=== PATIENT | female | born 1990 | race Caucasian/White ===

== ENCOUNTER → 2024-06-23 | Day surgery (SDC) | payer MEDICAID, SELFPAY ==
[2024-06-22 10:24] VITALS: BMI 37.9
[2024-06-22 12:07] LABS: Basophils % (Auto) 1 % (0-2.5); Eosinophils # (Auto) 0.1 Thou/mm3 (0.0-0.5); Eosinophils % (Auto) 1 % (0-10); Hematocrit 41.2 % (36.0-46.0); Hemoglobin 13.9 g/dL (12.0-16.0); Immature Granulocytes % (Auto) 0 % (0-0); Immature Granulocytes Auto 0.02 Thou/mm3 (0.00-0.00); Lymphocytes # (Auto) 1.8 Thou/mm3 (1.0-4.8); Lymphocytes % (Auto) 28 % (10-50); Mean Corpuscular HGB Conc 33.7 g/dl (31.0-37.0); Mean Corpuscular Hemoglobin 28.5 pg (25.0-35.0); Mean Corpuscular Volume 85 fL (80-100); Monocytes # (Auto) 0.5 Thou/mm3 (0.0-0.8); Monocytes % (Auto) 8 % (0-12); Neutrophils # (Auto) 4.2 Thou/mm3 (1.8-7.7); Neutrophils % (Auto) 63 % (37-80); Nucleated Red Blood Cell % 0 /100 WBC (0); Platelet Count 267 Thou/mm3 (140-440); RDW Standard Deviation 41.5 fL (36.4-46.3); Red Blood Count 4.87 Miln/mm3 (4.00-5.20); White Blood Count 6.6 Thou/mm3 (3.6-11.0)
[2024-06-22 12:08] LABS: HCG Qualitative,Urine Negative
[2024-06-22 12:14] LABS: Partial Thromboplastin Time 29.3 Seconds (22.0-36.0); Prothrombin Time 10.5 Seconds (9.0-12.2)
[2024-06-22 12:18] LABS: Alanine Aminotransferase 24 U/L (10-49); Albumin/Globulin Ratio 2.2 (1.2-2.2); Alkaline Phosphatase 91 U/L (46-116); Anion Gap 7 (7-16); Aspartate Amino Transferase 13 U/L (0-34); BUN/Creatinine Ratio 15 Ratio (12-20); Bilirubin,Total 0.2 mg/dL (0.3-1.2); Blood Urea Nitrogen 12 mg/dL (9-23); Calcium 9.3 mg/dL (8.3-10.6); Calcium (Corrected) 9.3 mg/dL (8.5-10.1); Carbon Dioxide 24.7 mMol/L (20.0-31.0); Chloride 105 mMol/L (98-107); Creatinine (Component) 0.8 mg/dL (0.6-1.3); Globulin 2.3 gm/dL (2.3-3.5); Glucose 101 mg/dL (74-106); Osmolality,Calculated 273 (275-295); Potassium 4.1 mMol/L (3.4-5.1); Sodium 137 mMol/L (136-145); Total Protein 7.3 gm/dL (5.7-8.2); eGFR > 60 See Note
[2024-06-23 06:43] VITALS: BP 146/93; PULSE 69; RESP 16; TEMP 36.3; O2SAT 97; BMI 37.5
--- NOTE | 2024-06-23 07:00 | EKG_ITS ---
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
--- NOTE | 2024-06-23 08:14 | SUR.PREOP ---
pt cancelled, abnormal EKG. will follow up with primary md for cardiac referral for cardiac clearance. advised to change diet.
--- NOTE | 2024-06-23 17:47 | PD.SURPROG ---
Documentation for date of: 06/23/24 Subjective Subjective Narrative: Patient was found to have atrial fibrillation in the perioperative evaluation with an EKG. Patient does not have much chest pain with the anesthesiologist is unwilling to proceed with surgery for fear of cardiac dysrhythmia which may complicate the course Exam Vital Signs Temp Pulse Resp BP Pulse Ox 97.3 F 69 16 146/93 H 97 06/23/24 06:43 06/23/24 06:43 06/23/24 06:43 06/23/24 06:43 06/23/24 06:43 Assessment & Plan Assessment Additional comments: Impression: Atrial fibrillation probably new onset with normal ventricular response Symptomatic cholelithiasis Plan Plan: As per the anesthesiologist we shall cancel the case and send her for a cardiac evaluation. She was therefore discharged
== END | disposition home or self-care (01) ==
LOC: S2EX 06:03
PROVIDERS: Anesthesiology; PCP Family Medicine; Referring Provider Surgery; Visit Provider Surgery
DX: K80.20 Calculus of gallbladder without cholecystitis without obstruction (principal); I48.91 Unspecified atrial fibrillation; Z01.810 Encounter for preprocedural cardiovascular examination; Z53.9 Procedure and treatment not carried out, unspecified reason
CPT/HCPCS: 47562; 36415; 80053; 81025; 85025; 85610; 85730; 93005

== ENCOUNTER 2025-06-08 14:48 | Emergency (ER) | payer MEDICAID, SELFPAY ==
[2025-06-08 16:05] VITALS: BP 138/88; PULSE 79; RESP 18; TEMP 36.7; O2SAT 98; BMI 36.6
--- NOTE | 2025-06-08 16:31 | XR_ITS ---
Examination: Shoulder, left, 3 views Technique: Shoulder AP internal rotation, AP external rotation, Y view shoulder, 3 views Exam date and time : June 08, 2025, 1641 hours INDICATIONS: Left shoulder pain beginning 3 weeks ago FINDINGS: No shoulder fracture or dislocation No arthritic change No calcific tendinitis IMPRESSION: Negative for osseous abnormality
--- NOTE | 2025-06-08 16:33 | PD.EDUPEX ---
Upper Extremity Injury RME/HPI General Chief Complaint: Extremity Injury, Upper Stated Complaint: LEFT SHOULDER PAIN X 3 WKS Time Seen by Provider: 06/08/25 15:13 Arrival date/time: 06/08/25 14:48 34-year-old female patient came in for evaluation regarding left shoulder pain. Onset of symptoms for the last 3 weeks has worsening rileft shoulder pain, worse with range of motion of the shoulder. Pain radiates to the left shoulder blade. Denies any neck pain denies any chest pain denies any redness or swelling. Denies any weakness to the left upper extremity. Denies any trauma or fall denies any fever. No medication was taken prior to ER visit. Related Data Previous Rx's ?Medication ?Instructions ?Recorded dexamethasone 6 mg tablet 6 mg PO QDAY #7 tabs 06/08/25 ibuprofen 800 mg tablet 800 mg PO TID PRN pain #30 tabs 06/08/25 Allergies Allergy/AdvReac Type Severity Reaction Status Date / Time latex Allergy Verified 06/08/25 14:48 Review of Systems Review of Systems Narrative Review of Systems: Review of system reviewed and within normal limits except mentioned in HPI ED Exam Narrative Physical exam: VITAL SIGNS: Reviewed. GENERAL APPEARANCE: Alert and interactive, follows commands, no acute distress, HEAD AND FACE: Non-traumatic. ENT: PERRL, pink conjunctivitis, eyelid no trauma, Mucous membrane moist. NECK: Supple, nontender, no nuchal rigidity. CHEST: No tenderness, no crepitus, no paradoxical movement, no retractions. LUNGS: Clear, well ventilated, symmetric, no rales, no wheezing, no ronchi, no stridor, good breath sounds bilaterally. HEART: Regular rate, regular rhythm, no murmur, no gallops. ABDOMEN: Soft, positive bowel sounds, nondistended, no guarding, nontender, no rebound, no masses, RECTAL: Deferred. GENITAL: Deferred. NEUROLOGICAL: Gross motor function intact sensory function intact, Appropriate for age. MUSCULOSKELETAL: low back nontender, full range of motion. EXTREMITIES: Left shoulder tenderness, no swelling no redness, with limitation range of motion. Distal neurovascular status intact. SKIN: Color pink, dry, no rash, no lacerations, no abrasions, no contusions. LYMPHATICS: Deferred. Course Quality Measures none Orders Category Date Time Status sling [Splint / Immobilizer] STAT Care 06/08/25 16:31 Active XR shoulder LT min 2V Stat Exams 06/08/25 16:31 Completed Ketorolac Inj [Toradol Inj] Med 06/08/25 16:31 Discontinued 30 mg IM X1 ONE dexAMETHasone INJ [Decadron Inj] Med 06/08/25 16:31 Discontinued 10 mg PO X1 ONE Vital Signs Vital signs: Vital Signs Temperature 98.1 F 06/08/25 16:05 Pulse Rate 79 06/08/25 16:05 Respiratory Rate 18 06/08/25 16:05 Blood Pressure 138/88 H 06/08/25 16:05 Pulse Oximetry (%) 98 06/08/25 16:05 Oxygen Delivery Method Room Air 06/08/25 16:05 Extremity Injury MDM Narrative MDM Narrative:: 34-year-old female patient came in for evaluation regarding left shoulder pain. Onset of symptoms for the last 3 weeks has worsening rileft shoulder pain, worse with range of motion of the shoulder. Pain radiates to the left shoulder blade. Denies any neck pain denies any chest pain denies any redness or swelling. Denies any weakness to the left upper extremity. Denies any trauma or fall denies any fever. No medication was taken prior to ER visit. X-ray of the left shoulder came back unremarkable. Results discussed with the patient. Patient was supplied with arm sling, further imaging is not done at this time. Patient stable for discharge home Patient data External records reviewed:: None Clinical information provided by:: patient Social determinants that could affect healthcare access:: none Patient has the following chronic illnesses:: None How is presenting disease/condition affected by chronic disease/condition?: no chronic disease Evaluation data The following diagnostics were reviewed and interpreted by me:: radiology exam(s) Lab and/or radiology exams considered but not ordered:: None Interpretation Summary: See above Medications / Prescriptions Medications or Prescriptions considered but not ordered:: None Medication administrations:: Medication Administration History Discontinued Medications Dexamethasone Sodium Phosphate (Dexamethasone Sod Phos Inj 10 Mg/Ml Vial) 10 mg PO X1 ONE Stop: 06/08/25 16:32 Last Admin: 06/08/25 17:08 Dose: 10 mg Documented By: Ketorolac Tromethamine (Ketorolac Inj 30 Mg/Ml Vial) 30 mg IM X1 ONE Stop: 06/08/25 16:32 Last Admin: 06/08/25 17:08 Dose: 30 mg Documented By: Decadron Toradol Consultations Consultation(s) initiated? (list below): No Diagnosis Upper Extremity Injury Differential Diagnosis: dislocation of shoulder and fracture of humerus Most likely diagnosis given after review of the tests above:: Left shoulder pain Admission Indicated Admission indicated?: not indicated Admission Request Was there a request for admission?: No Disposition Plan Disposition Plan: Discharge Discharge Attestation Discharge Attestation: The patient was given an opportunity to ask questions and understood the discharge instructions. Discharge instructions specifically effects, indications for sooner follow up or return to the emergency department, and the expected course of current diagnosis. Patient condition: Stable Discharge Plan Plan Patient Disposition: HOME (Self Care) Discharge Disposition comment: stable Prescriptions/Referrals Prescriptions/Med Rec: New ibuprofen 800 mg tablet 800 mg PO TID PRN (Reason: pain) Qty: 30 0RF dexamethasone 6 mg tablet 6 mg PO QDAY Qty: 7 0RF Referrals: Cuco Chung MD [Primary Care Provider, Family Practice] - In 1 week Problem List Clinical Impression: Left shoulder pain Patient/Caregiver Discharge Instructions Discharge Activity: activity as tolerated Education Materials: Pendulum Exercise Shoulder Additional Instructions: Thank you for the opportunity for serving you today. You are stable for discharged . You are advised to: Follow-up with your PCP in 1 to 2 days Return to ED for worsening of symptoms Increase oral fluids Take medication as prescribed Wear your arm sling for the next 2 to 3 weeks as needed Print Language: Lithuanian Stand Alone Forms: Holly Award Info., Work/School Release, Patient Portal Info Letter MARGARITA Supervising Physician MARGARITA Supervising Physician: MD Kalyn
[2025-06-08] MEDS: KETOROLAC INJ 30 MG/ML VIAL IM (17:08)
[2025-06-08 19:12] VITALS: RESP 16
== END 2025-06-08 19:13 | disposition home or self-care (01) ==
PROVIDERS: Emergency Provider Family Medicine; PCP Family Medicine
DX: M25.512 Pain in left shoulder (principal)
CPT/HCPCS: 73030; 96372; 99283; A4565; J1100; J1885